=== PATIENT | male | born 1965 | race Two or more races ===

== ENCOUNTER 2025-02-27 11:36 | Emergency (ER) | payer MEDICAID, SELFPAY ==
[2025-02-27 12:05] VITALS: BP 154/83; PULSE 68; RESP 18; TEMP 36.4; O2SAT 97; BMI 29.0
--- NOTE | 2025-02-27 12:11 | XR_ITS ---
Examination: CT abdomen and pelvis without contrast. Coronal 3-D reconstructions. Sagittal 2-D reconstructions. Date and time of exam: February 27, 2025, 1303 hours INDICATIONS: Abdominal pain, right-sided flank pain beginning 3 days ago CTDI: vol (mGy): 10.1 DLP: (mGycm): 584 Technique: Axial images of the abdomen have been obtained, 3 mm slice thickness Intravenous contrast material has not been administered. Low dose protocols were performed. One or more of the following dose reduction techniques were used; automated exposure control, adjustment of the mA and/or KV according to patient size, use of iterative reconstruction technique. Findings: No visualized liver or splenic lesion No gallstones No pancreatic or adrenal mass Minimal right hydronephrosis secondary to 1 mm distal right ureteral calculus Bladder calculi, the largest 6 mm Aorta normal size No pericecal inflammatory change No bowel obstruction Abnormal prostate, enlarged, AP dimension 5.4 cm with irregular contour Intact osseous structures IMPRESSION: Minimal right hydronephrosis secondary to 1 mm distal right ureterovesical junction calculus Small bladder calculi
--- NOTE | 2025-02-27 12:12 | PD.EDRME ---
Rapid Medical Screening Exam RME Arrival date/time: 02/27/25 11:36 59-year-old male with no known medical history presents to the emergency room with a chief complaint of right sided flank pain x 3 days I have greeted and performed a focused initial assessment of this patient. A comprehensive ED assessment and evaluation of the patient, analysis of all test results, and completion of the medical decision making process will be conducted by additional ED providers. Chief Complaint: Urogenital-Male Time Seen by Provider: 02/27/25 12:02 Vital signs: Vital Signs Temperature 97.6 F 02/27/25 12:05 Pulse Rate 68 02/27/25 12:05 Respiratory Rate 18 02/27/25 12:05 Blood Pressure 154/83 H 02/27/25 12:05 Pulse Oximetry (%) 97 02/27/25 12:05 Oxygen Delivery Method Room Air 02/27/25 12:05 Vital signs reviewed by provider: Yes Exam: Right CVA tenderness with palpation Clear bilateral lungs Clinical Impression: Ureteral calculi/pyelonephritis/UTI
[2025-02-27 12:39] LABS: Basophils # (Auto) 0.0 Thou/mm3 (0.0-0.2); Basophils % (Auto) 0 % (0-2.5); Eosinophils # (Auto) 0.0 Thou/mm3 (0.0-0.5); Eosinophils % (Auto) 0 % (0-10); Hematocrit 42.7 % (41.0-53.0); Hemoglobin 14.9 g/dL (13.5-16.0); Immature Granulocytes Auto 0.03 Thou/mm3 (0.00-0.00); Lymphocytes # (Auto) 0.7 Thou/mm3 (1.0-4.8); Lymphocytes % (Auto) 9 % (10-50); Mean Corpuscular HGB Conc 34.9 g/dl (31.0-37.0); Mean Corpuscular Hemoglobin 30.3 pg (25.0-35.0); Mean Corpuscular Volume 87 fL (80-100); Monocytes # (Auto) 0.3 Thou/mm3 (0.0-0.8); Monocytes % (Auto) 3 % (0-12); Neutrophils # (Auto) 7.2 Thou/mm3 (1.8-7.7); Neutrophils % (Auto) 87 % (37-80); Nucleated Red Blood Cell # 0.00 Thou/mm3 (0.00-0.00); Nucleated Red Blood Cell % 0 /100 WBC (0); Platelet Count 198 Thou/mm3 (140-440); RDW Standard Deviation 41.1 fL (35.1-43.9); Red Blood Count 4.92 Miln/mm3 (4.50-5.90); White Blood Count 8.2 Thou/mm3 (3.8-10.6)
[2025-02-27 12:59] LABS: Alanine Aminotransferase 13 U/L (10-49); Albumin, Serum 4.1 gm/dL (3.4-4.8); Albumin/Globulin Ratio 1.2 (1.2-2.2); Alkaline Phosphatase 99 U/L (46-116); Anion Gap 10 (7-16); Aspartate Amino Transferase 18 U/L (0-34); BUN/Creatinine Ratio 15 Ratio (12-20); Bilirubin,Total 0.3 mg/dL (0.3-1.2); Blood Urea Nitrogen 16 mg/dL (9-23); Calcium 9.0 mg/dL (8.3-10.6); Calcium (Corrected) 9.0 mg/dL (8.5-10.1); Carbon Dioxide 25.5 mMol/L (20.0-31.0); Chloride 104 mMol/L (98-107); Creatinine (Component) 1.1 mg/dL (0.6-1.3); Estimated Creatinine Clearance 71.7 mL/min (>60); Globulin 3.3 gm/dL (2.3-3.5); Glucose 174 mg/dL (74-106); Lipase 36 U/L (12-53); Osmolality,Calculated 282 (275-295); Potassium 4.2 mMol/L (3.4-5.1); Sodium 139 mMol/L (136-145); Total Protein 7.4 gm/dL (5.7-8.2); eGFR > 60 See Note
[2025-02-27 13:15] LABS: Collection Type, Urine Clean Catch; Squamous Epithelial Cell,Urine 0 /hpf (0-5)
[2025-02-27] MEDS: HYDROcodone/APAP 5/325 TABLET 1 TAB PO (13:16)
[2025-02-27 13:37] LABS: Bilirubin,Urine Negative (Negative); Blood,Urine 3+ (Negative); Clarity,Urine Turbid (Clear/Hazy); Color,Urine Yellow (Lt Yel-Yel); Glucose, Urine Trace (Negative); Ketones,Urine Negative (Negative); Leukocyte Esterase,Urine Negative (Negative); Nitrite,Urine Negative (Negative); PH,Urine 5.5 (5.0-7.0); Protein,Urine 1+ (Neg - Trace); RBC,Urine 1456 /hpf (0-3); Specific Gravity,Urine 1.030 (1.001-1.035); Uric Acid Crystals,Urine 4+; Urobilinogen,Urine Negative mg/dL (0.0-1.0); WBC,Urine 1 /hpf (0-5)
--- NOTE | 2025-02-27 14:17 | PD.EDBACK ---
ED Back Injury Pain RME/HPI General Chief Complaint: Urogenital-Male Stated Complaint: PAIN R) KIDNEY 10/16; SENT BY [facility] [address] Time Seen by Provider: 02/27/25 12:02 Arrival date/time: 02/27/25 11:36 RME / HPI RME / HPI Narrative: 02/27/25 11:36 59-year-old male with no known medical history presents to the emergency room with a chief complaint of right sided flank pain x 3 days I have greeted and performed a focused initial assessment of this patient. A comprehensive ED assessment and evaluation of the patient, analysis of all test results, and completion of the medical decision making process will be conducted by additional ED providers. DR. TYLER MAIN ED EVALUATION 59 year old male with no known medical history presents to the ED for evaluation of right flank pain beginning on/off 2 days ago and worsening this morning. Pain described as colicky in sensation, rating as severe, that began in the right flank with radiation around to right lower groin. Accompanied by nausea, vomiting, and urinary hesitancy which he attributes to the pain. Reportedly had consulted with PCP this morning and given an IM injection for pain and advised to come here for further evaluation. No other associated symptoms reported. Denies fevers, chills, sweats, chest pain, cough, shortness of breath, diarrhea, constipation. Exam: Right CVA tenderness with palpation Clear bilateral lungs Impression: Ureteral calculi/pyelonephritis/UTI Related Data Previous Rx's ?Medication ?Instructions ?Recorded ketorolac 10 mg tablet 10 mg PO Q8H PRN pain 5 days #20 02/27/25 tabs tamsulosin 0.4 mg capsule 0.4 mg PO Q24H #5 caps 02/27/25 Allergies Allergy/AdvReac Type Severity Reaction Status Date / Time No Known Allergies Allergy Verified 02/27/25 11:42 Review of Systems Review of Systems Systems Reviewed: All systems reviewed, normal except as documented Past Medical History Social History SMOKING STATUS: Never smoker ED Exam Narrative Physical exam: Constitutional: Awake, alert, nontoxic, no acute distress HEENT: Normocephalic, atraumatic, extraocular movements intact. Neck: Supple CV: Regular rate and rhythm, no murmurs/rubs/gallops Lungs: Clear to auscultation BL, no respiratory distress. Abd: Soft, NT, ND, no HSM noted to palpation Extremities: No deformities, no edema noted Skin: Warm, dry, intact Course Quality Measures none Orders Category Date Time Status CT abdomen pelvis wo con Stat Exams 02/27/25 12:11 Completed CBC Stat Lab 02/27/25 12:18 Completed CMP [Comprehensive Metabolic Panel] Stat Lab 02/27/25 12:18 Completed Lipase Stat Lab 02/27/25 12:18 Completed UA [Urinalysis] Stat Lab 02/27/25 12:45 Completed Urine Culture Stat Lab 02/27/25 12:45 Received HYDROcodone*/APAP 5/325 [[place] 5/325] Med 02/27/25 14:38 Discontinued 1 tab PO Q6HR PRN HYDROcodone*/APAP 5/325 [[place] 5/325] Med 02/27/25 12:11 Discontinued 1 tab PO X1 ONE HYDROcodone*/APAP 5/325 [[place] 5/325] Med 02/27/25 15:07 Discontinued 1 tab PO X1 ONE Vital Signs Vital signs: Vital Signs Temperature 97.6 F 02/27/25 12:05 Pulse Rate 68 02/27/25 12:05 Respiratory Rate 18 02/27/25 12:05 Blood Pressure 154/83 H 02/27/25 12:05 Pulse Oximetry (%) 97 02/27/25 12:05 Oxygen Delivery Method Room Air 02/27/25 12:05 Pulse ox is 97% on room air which is adequate. Back Pain / Injury MDM Narrative MDM Narrative:: Jesica Bennett am scribing for and in the presence of Dr. Tyler. 59 year old male presents with right flank pain radiating to the groin. Evaluation included labs and CT imaging, which revealed a right UVJ ureteral stone. Labs were otherwise unremarkable. Patient was treated with [place] in the ED with noted improvement in symptoms. Given clinical improvement, stable vital signs, and absence of complications, patient is stable for discharge with pain control medications and appropriate outpatient follow-up instructions. Patient data External records reviewed:: [facility] previous records Clinical information provided by:: patient Social determinants that could affect healthcare access:: none Patient has the following chronic illnesses:: None reported How is presenting disease/condition affected by chronic disease/condition?: no chronic disease Evaluation data The following diagnostics were reviewed and interpreted by me:: lab results and radiology exam(s) Lab and/or radiology exams considered but not ordered:: None Interpretation Summary: Ordering Physician: Lakhwinder Cheema Date of Service: 02/27/25 Procedure(s): CT abdomen pelvis wo con Accession Number(s): [id number] cc: Lakhwinder Cheema; Neto Meadows MD~ Examination: CT abdomen and pelvis without contrast. Coronal 3-D reconstructions. Sagittal 2-D reconstructions. Date and time of exam: February 27, 2025, 1303 hours INDICATIONS: Abdominal pain, right-sided flank pain beginning 3 days ago CTDI: vol (mGy): 10.1 DLP: (mGycm): 584 Technique: Axial images of the abdomen have been obtained, 3 mm slice thickness Intravenous contrast material has not been administered. Low dose protocols were performed. One or more of the following dose reduction techniques were used; automated exposure control, adjustment of the mA and/or KV according to patient size, use of iterative reconstruction technique. Findings: No visualized liver or splenic lesion No gallstones No pancreatic or adrenal mass Minimal right hydronephrosis secondary to 1 mm distal right ureteral calculus Bladder calculi, the largest 6 mm Aorta normal size No pericecal inflammatory change No bowel obstruction Abnormal prostate, enlarged, AP dimension 5.4 cm with irregular contour Intact osseous structures IMPRESSION: Minimal right hydronephrosis secondary to 1 mm distal right ureterovesical junction calculus Small bladder calculi Dictated By: Neto Meadows MD Signed By: <Electronically signed by Neto Meadows MD in OV> 02/27/25 1330 Medications / Prescriptions Medications or Prescriptions considered but not ordered:: None Medication administrations:: Medication Administration History Discontinued Medications Hydrocodone Bitart/Acetaminophen (Hydrocodone/Apap 5/325 Tablet) 1 tab PO X1 ONE Stop: 02/27/25 12:12 Last Admin: 02/27/25 13:16 Dose: 1 tab Documented By: CLAUDETTE Hydrocodone Bitart/Acetaminophen (Hydrocodone/Apap 5/325 Tablet) 1 tab PO Q6HR PRN PRN Reason: PAIN Stop: 03/04/25 14:37 Hydrocodone Bitart/Acetaminophen (Hydrocodone/Apap 5/325 Tablet) 1 tab PO X1 ONE Stop: 02/27/25 15:08 Last Admin: 02/27/25 15:22 Dose: Not Given Documented By: JACKELYN Non-Admin Reason: Patient Refused See above Consultations Consultation(s) initiated? (list below): No Diagnosis Most likely diagnosis given after review of the tests above:: Ureterolithiasis Admission Indicated Admission indicated?: not indicated Explain why admission is indicated or not indicated:: With no condition needing emergent intervention, there was no indication for admission. Admission Request Was there a request for admission?: No Disposition Plan Disposition Plan: Discharge Discharge Attestation Discharge Attestation: The patient and all family members were given an opportunity to ask questions and understood the discharge instructions. Discharge instructions specifically effects, indications for sooner follow up or return to the emergency department, and the expected course of current diagnosis. Patient condition: Stable Discharge Plan Plan Patient Disposition: HOME (Self Care) Patient condition on transfer: Stable Prescriptions/Referrals Prescriptions/Med Rec: New ketorolac 10 mg tablet 10 mg PO Q8H PRN (Reason: pain) 5 Days Qty: 20 0RF tamsulosin 0.4 mg capsule 0.4 mg PO Q24H Qty: 5 0RF Referrals: Calos Oliveira FNP [Primary Care Provider] - In 1 week Problem List Clinical Impression: Ureterolithiasis Patient/Caregiver Discharge Instructions Education Materials: ED Kidney Stone w/ Colic Additional Instructions: Algunos principios generales de gideon que pueden ayudarte son los principios de ADELANTE: Agua: (beber suficiente agua fresca para mantenerse hidratado, priorizando el agua en lugar de refrescos, caf?, t?, jugos, etc.). [place] (descansar adecuadamente por la noche, acostarse unas horas antes de la medianoche y evitar las pantallas, la televisi?n y la m?giovani chase jacquie antes de acostarse, as? brina las comidas pesadas jacquie antes de acostarse). Ejercicio: (ejercicio/caminatas diarias seg?n la tolerancia). Ivy solar: (exponer la piel al dottie mikel 15-20 minutos aproximadamente, temprano por la ma?abelino y al atardecer, para obtener los beneficios de la vitamina D). Aire (ejercicios de respiraci?n profunda temprano por la ma?abelino al aire aidan). Nutricion: (consumir sundeep dieta a base de plantas, evitar las rowdy en general y los alimentos altamente procesados). Templanza (evitar el alcohol, las drogas il?citas, las bebidas con cafe?na, fumar, etc.). [place] en [place] (dedicar tiempo diariamente al estudio b?blico y la oraci?n: la contemplaci?n tiene beneficios para la gideon). Recursos adicionales que pueden ser ?vasyl: www.[employer].Qloud, consulte la secci?n de recursos y seminarios. Print Language: Eritrean Stand Alone Forms: Aline Award Info., Patient Portal Info Letter
[2025-02-27 15:36] VITALS: BP 143/72; PULSE 79; RESP 17; TEMP 36.6; O2SAT 98
== END 2025-02-27 15:38 | disposition home or self-care (01) ==
PROVIDERS: Nurse Practitioner Family; Emergency Provider Family Medicine; PCP Nurse Practitioner Family
DX: N13.2 Hydronephrosis with renal and ureteral calculous obstruction (principal); N21.0 Calculus in bladder
CPT/HCPCS: 36415; 74176; 80053; 81001; 83690; 85025; 87086; 99283; A9270